=== PATIENT | female | born 1980 | race Caucasian/White ===

== ENCOUNTER 2018-03-28 02:18 | Emergency (ER) | payer BC ==
--- NOTE | 2018-03-28 02:52 | Emergency Department Record ---
History of Present Illness - General Chief complaint: Pain Stated complaint: RIGHT WRIST PAIN Time Seen by Provider: 03/28/18 02:46 Source: Patient Mode of Arrival: Ambulatory Limitations: No limitations - History of Present Illness Initial comments: yesterday pt was getting ready to open a door at work when somebody came through with force and the door jammed her wrist. the pain has gradually increased through the night MD Complaint: Extremity pain Onset/Timin -: Hour(s) Location: Right History of Same: No Radiation: None Severity scale (1-10): 3 Quality: Aching Consistency: Constant Improves with: Nothing - Related Data Home Medications Medication Instructions Recorded Confirmed Last Taken Dextroamphetamine/Amphetamine 15 mg PO DAILY 03/28/18 03/28/18 Unknown [Dextroamp-Amphet ER 15 mg Cap] Dextroamphetamine/Amphetamine 5 mg PO DAILY 03/28/18 03/28/18 Unknown [Dextroamp-Amphetamine 5 mg Tab] Hydrocodone/Acetaminophen 1 tab PO Q6H PRN 03/28/18 03/28/18 Unknown [Hydrocodone/Acetaminophen 5mg/325mg] Allergies Allergy/AdvReac Type Severity Reaction Status Date / Time No Known Drug Allergies Allergy Verified 03/28/18 02:23 Travel Screening - Travel/Exposure Within Last 30 Days Have you traveled within the last 30 days?: No Review of Systems Reviewed: No additional complaints except as noted below Constitutional: Reports: As per HPI. Denies: Chills, Fever, Malaise, Night sweats, Weakness, Weight change Eyes: Reports: As per HPI. Denies: Eye discharge, Eye pain, Photophobia, Vision change ENT: Reports: As per HPI. Denies: Congestion, Dental pain, Ear pain, Epistaxis , Hearing loss, Throat pain Respiratory: Reports: As per HPI. Denies: Cough, Dyspnea, Hemoptysis, Stridor, Wheezes Cardiovascular: Reports: As per HPI. Denies: Arrhythmia, Chest pain, Dyspnea on exertion, Edema, Murmurs, Orthopnea, Palpitations, Paroxysmal nocturnal dyspnea, Rheumatic Fever, Syncope Endocrine: Reports: As per HPI. Denies: Fatigue, Heat or cold intolerance, Polydipsia, Polyuria Gastrointestinal: Reports: As per HPI. Denies: Abdominal pain, Constipation, Diarrhea, Hematemesis, Hematochezia, Melena, Nausea, Vomiting Genitourinary: Reports: As per HPI. Denies: Abnormal menses, Discharge, Dyspareunia, Dysuria, Frequency, Hematuria, Incontinence, Retention, Urgency Musculoskeletal: Reports: As per HPI. Denies: Arthralgia, Back pain, Gout, Joint swelling, Myalgia, Neck pain Skin: Reports: As per HPI. Denies: Bruising, Change in color, Change in hair/ nails, Lesions, Pruritus, Rash Neurological: Reports: As per HPI. Denies: Abnormal gait, Confusion, Headache, Numbness, Paresthesias, Seizure, Tingling, Tremors, Vertigo, Weakness Psychiatric: Reports: As per HPI. Denies: Anxiety, Auditory hallucinations, Depression, Homicidal thoughts, Suicidal thoughts, Visual hallucinations Hematological/Lymphatic: Reports: As per HPI. Denies: Anemia, Blood Clots, Easy bleeding, Easy bruising, Swollen glands Past Medical History - SOCIAL HISTORY Smoking Status: Current every day smoker Alcohol Use: None Drug Use: None - RESPIRATORY Hx Respiratory Disorders: No - CARDIOVASCULAR Hx Cardio Disorders: No - NEURO Hx Neuro Disorders: No - GI Hx GI Disorders: No - Hx Genitourinary Disorders: No - ENDOCRINE Hx Endocrine Disorders: No - MUSCULOSKELETAL Hx Musculoskeletal Disorders: Yes - PSYCH Hx Psych Problems: Yes Comment:: ADD - HEMATOLOGY/ONCOLOGY Hx Hematology/Oncology Disorders: No Family Medical History Any Significant Family History?: Yes Family Hx Comment (NOT TO BE USED IN PLACE OF ITEMS BELOW): Parkinsons-Grandpa Hx Cancer: Grandparents *Cancer Comment: Uncle-Lung Physical Exam - General General Appearance: Alert, Oriented x3, Cooperative, Mild distress - Head Head exam: Normal inspection - Eye Eye exam: Normal appearance, PERRL, EOMI Pupils: Normal accommodation - ENT ENT exam: Normal exam, Mucous membranes moist, Normal external ear exam, Normal orophraynx Ear exam: Normal external inspection. negative: External canal tenderness Nasal Exam: Normal inspection. negative: Discharge, Sinus tenderness Mouth exam: Normal external inspection, Tongue normal Teeth exam: Normal inspection. negative: Dental caries Throat exam: Normal inspection. negative: Tonsillar erythema, Tonsillar exudate - Neck Neck exam: Normal inspection, Full ROM. negative: Tenderness - Respiratory Respiratory exam: Normal lung sounds bilaterally. negative: Respiratory distress - Cardiovascular Cardiovascular Exam: Regular rate, Normal rhythm, Normal heart sounds - GI/Abdominal GI/Abdominal exam: Soft, Normal bowel sounds. negative: Tenderness - Rectal Rectal exam: Deferred - exam: Deferred - Extremities Extremities exam: Normal inspection, Full ROM, Normal capillary refill, Tenderness Image of Hand: 1 - tender - Back Back exam: Reports: Normal inspection, Full ROM. Denies: Muscle spasm, Rash noted, Tenderness - Neurological Neurological exam: Alert, CN II-XII intact, Normal gait, Oriented X3 - Psychiatric Psychiatric exam: Normal affect, Normal mood - Skin Skin exam: Dry, Intact, Normal color, Warm Course Vital Signs 03/28/18 02:26 Temperature 98.8 F Pulse Rate [ 104 H Pulse Ox Probe] Respiratory 18 Rate Blood Pressure 141/80 [Left Arm] Pulse Ox 97 Disposition Disposition: Discharge Clinical Impression: Wrist contusion Qualifiers: Encounter type: initial encounter Laterality: right Qualified Code(s): S60.211A - Contusion of right wrist, initial encounter Disposition: Home, Self-Care Condition: (1) Good Instructions: Contusion in Adults (ED) Additional Instructions: follow up with family doctor. return sooner if worse. ice and elevate. motrin with food Quality - Quality Measures Quality Measures: N/A - Blood Pressure Screening Does Patient Have Any of the Following: No Blood Pressure Classification: Pre-Hypertensive BP Reading Systolic Measurement: 141 Diastolic Measurement: 80 Screening for High Blood Pressure: < Pre-Hypertensive BP, F/U Documented > [ [id number]] Pre-Hypertensive Follow-up Interventions: Follow-up with rescreen every year.
--- NOTE | 2018-03-30 08:41 | RADIOLOGY REPORT ---
EXAM: RIGHT WRIST COMPLETE HISTORY: PAIN POST INJURY. TECHNIQUE: Four views of the right wrist were obtained. Comparison: None. FINDINGS: There is normal bone mineralization. No fracture, dislocation, or destructive bone lesion is seen. The articular relations are maintained. No focal soft tissue abnormality is identified. IMPRESSION: NEGATIVE RIGHT WRIST EXAMINATION. JOB NUMBER: [id number] [facility]
== END 2018-03-28 03:13 | disposition home or self-care (01) ==
LOC: ER 02:18
DX: S60.211A Contusion of right wrist, initial encounter (principal); W22.8XXA Striking against or struck by other objects, initial encounter; F17.210 Nicotine dependence, cigarettes, uncomplicated; Y99.0 Civilian activity done for income or pay
CPT/HCPCS: 99283